=== PATIENT | female | born 1970 | race Caucasian/White ===

== ENCOUNTER 2025-04-19 13:24 | Outpatient (CLI) | payer OTHER ==
[~2025-04-19 13:24] MED LIST: ALLEGRA ALLERGY60 MG PO; CARTIA XT120 MG PO
== END 2025-04-19 13:26 | disposition home or self-care (01) ==
LOC: MAMO-SONO 13:24
PROVIDERS: ATTEND Orthopaedic Surgery
DX: M25.561 Pain in right knee (principal); M25.562 Pain in left knee; N64.4 Mastodynia; Z12.31 Encounter for screening mammogram for malignant neoplasm of breast